=== PATIENT | female | born 1955 | race Caucasian/White ===

== ENCOUNTER → 2019-05-30 15:58 | Outpatient (CLI) | payer OTHER, SELFPAY ==
--- NOTE | 2019-05-30 16:00 | MM_ITS ---
PROCEDURE: MM DIG SCREENING MAMM BI W/CAD CLINICAL INDICATION: Routine Screening Mammogram There is a history of breast cancer patient's mother diagnosed after menopause. There has been a previous biopsy left breast for benign disease. COMPARISON: DMDXUL DIG MAMM-DX UNI-LT from 04/18/2015 DMSB DIG MAMM-SCREEN VERO from 01/09/2016 DMDXUL DIG MAMM-DX UNI-LT W/CAD from 08/04/2016 TECHNIQUE: Standard CC and MLO images were obtained. R2 CAD reviewed. FINDINGS: There is a diffusely dense and heterogenic parenchymal pattern bilaterally similar to the previous studies. There is stable nodularity in the left breast and the subareolar region. There are few benign-appearing microcalcifications in the central portions of each breast. There is no new or suspicious lesion in either breast and no suspicious microcalcifications. IMPRESSION: Stable dense and heterogenic parenchymal pattern BI-RAD Category: 2 Benign Finding(s) FOLLOW-UP: 1YR 1 Year Follow-up (A letter has been sent to the patient regarding results of the study.) Dictated by: Dr. Sohail Hoffman MD 06/01/2019 08:[address] Sohail Hoffman MD in [place] 06/01/2019 08:18
== END ==
PROVIDERS: PCP Internal Medicine; Visit Provider Nurse Practitioner Obstetrics & Gynecology
DX: Z12.31 Encounter for screening mammogram for malignant neoplasm of breast (principal)
CPT/HCPCS: 77067

== ENCOUNTER → 2019-08-16 17:30 | Outpatient (CLI) | payer OTHER, SELFPAY ==
[2019-08-17 10:52] LABS: Adenovirus F 40/41, stool Not Detected (NotDetected); Astrovirus Not Detected (NotDetected); Campylobacter Not Detected (NotDetected); Clostridium Difficile A/B, PCR Not Detected (NotDetected); Cryptosporidium Not Detected (NotDetected); Cyclospora Cayetanesis Not Detected (NotDetected); Entamoeba histolytica Not Detected (NotDetected); Enteroaggregative E coli Not Detected (NotDetected); Enteropathogenic E coli Not Detected (NotDetected); Enterotoxigenic E coli Not Detected (NotDetected); Giardia lamblia Not Detected (NotDetected); Norovirus Not Detected (NotDetected); Plesimonas Shigalloides, PCR Not Detected (NotDetected); Rotavirus A Not Detected (NotDetected); Salmonella, PCR Not Detected (NotDetected); Sapovirus Not Detected (NotDetected); Shiga-like toxin E coli Not Detected (NotDetected); Shigella Enterovasive E coli Not Detected (NotDetected); Vibrio Cholerae Not Detected (NotDetected); Vibrio, PCR Not Detected (NotDetected); Yersinia Entercolitica, PCR Not Detected (NotDetected)
== END ==
LOC: LAB 08-17 10:47 → LAB.DROPOF 08-17 10:48
PROVIDERS: Visit Provider Nurse Practitioner
DX: R19.7 Diarrhea, unspecified (principal)
CPT/HCPCS: 87507

== ENCOUNTER → 2020-04-02 13:54 | Outpatient (CLI) | payer OTHER, SELFPAY | PROVIDERS: Visit Provider Internal Medicine | DX: Z01.818 Encounter for other preprocedural examination (principal) | CPT/HCPCS: U0003 ==

== ENCOUNTER → 2020-05-01 11:03 | Outpatient (POV) | payer OTHER, SELFPAY | PROVIDERS: Visit Provider Audiologist | DX: Z00.00 Encounter for general adult medical examination without abnormal findings (principal) ==

== ENCOUNTER → 2020-05-06 10:03 | Outpatient (POV) | payer OTHER, SELFPAY | PROVIDERS: Visit Provider Dermatology | DX: Z00.00 Encounter for general adult medical examination without abnormal findings (principal) ==

== ENCOUNTER → 2020-05-29 12:13 | Outpatient (CLI) | payer OTHER, SELFPAY ==
[2020-05-29 13:00] LABS: Basophils % 0.2 % (0.1-2.0); Eosinophils # 0.1 K/mm3 (0.0-0.4); Eosinophils % 1.7 % (0.1-12.0); Hematocrit 41.1 % (37.0-47.0); Hemoglobin 13.4 g/dL (12.2-16.2); Lymphocytes # 2.3 K/mm3 (0.7-4.5); Lymphocytes % 34.7 % (10-50); Mean Corpuscular HGB Conc 32.5 g/dL (31.8-35.4); Mean Corpuscular Volume 95.3 fl (81-99); Monocytes # 0.3 K/mm3 (0.1-1.0); Monocytes % 4.3 % (1.7-9.3); Neutrophils % 59.1 % (37.0-80.0); Platelet Count 286 K/mm3 (142-424); Red Blood Count 4.31 M/mm3 (4.20-5.40); Red Cell Distribution Width 12.6 % (11.5-17.5); White Blood Count 6.7 K/mm3 (4.8-10.8)
[2020-05-29 13:55] LABS: Hemoglobin A1C 6.7 % (4.0-6.0)
--- NOTE | 2020-05-29 14:30 | CT_ITS ---
PROCEDURE: CT ABDOMEN PELVIS W CON CLINICAL INDICATION: LT UPPER QUADRANT ABD PAIN COMPARISON: No exams were available for comparison TECHNIQUE: IV Contrast: 75ML OPTIRAY 350 Oral Contrast None Axial images obtained with sagittal and coronal reformats. All CT scans at the facility use one or more dose reduction, viz: automated exposure control, ma/kV adjustment per patient size (including targeted exams where dose is matched to indication, i.e. head), or iterative reconstruction technique. FINDINGS: LOWER THORAX: No acute finding ABDOMEN & PELVIS: There is slight decreased attenuation of the liver suggesting mild hepatic steatosis. No focal liver lesion is evident. Multiple gallstones are present. The spleen, adrenal glands, pancreas have an unremarkable appearance. There is and 11 mm stone in the left renal pelvis with minimal dilatation of the left renal pelvicaliceal system. No ureteral calculi are evident. Unremarkable appendix. Minimal calcification in the left aspect of the fundus of the uterus. No pelvic mass or abnormal fluid collection is evident. There is mild degenerative disc disease at L5-S1. IMPRESSION: 1. 11 mm left ureteropelvic junction stone with mild obstructive uropathy. 2. Cholelithiasis. Dictated by: Maikel Hankins MD 05/30/2020 10:00 Maikel Hankins MD in [place] 05/30/2020 10:00
[2020-05-29 14:32] LABS: Chloride 102 mmol/L (98-107)
[2020-05-29 14:33] LABS: Potassium 4.2 mmoL/L (3.5-5.1); Sodium 137 mmol/L (136-145)
[2020-05-29 14:35] LABS: Alanine Aminotransferase 14 U/L (12-78); Albumin Level 4.3 g/dl (3.5-5.0); Albumin/Globulin Ratio 1.4 (1.1-1.8); Alkaline Phosphatase 62 U/L (38-126); Anion Gap 14.2 mEq/L (5-15); Aspartate Amino Transferase 24 U/L (14-36); Bilirubin,Total 0.5 mg/dl (0.2-1.3); Blood Urea Nitrogen 16 mg/dl (7-17); Calcium 9.9 mg/dl (8.4-10.2); Carbon Dioxide 25 mmol/L (22.0-30.0); Estimated Glomerular Filt Rate 100 ml/min (>60); GFR (African American) 121 ML/MIN (>60); Globulin 3.1 g/dL (1.3-3.2); Glucose 116 mg/dl (74-100); Lipase 68 U/L (23-300); Total Protein,Serum 7.4 g/dl (6.3-8.2)
== END ==
PROVIDERS: Visit Provider Internal Medicine Adolescent Medicine
DX: R10.12 Left upper quadrant pain (principal)
CPT/HCPCS: 36415; 74177; 80053; 83036; 83690; 85025; Q9967

== ENCOUNTER → 2020-05-30 09:36 | Day surgery (SDC) | payer OTHER, MEDICAID, SELFPAY ==
[2020-05-30] VITALS (11 sets, daily range): BP systolic 126–154; BP diastolic 70–85; PULSE 79–95; RESP 16–18; TEMP 36.4–36.9; O2SAT 94–100; BMI 21.2
--- NOTE | 2020-05-30 11:01 | P.PN_ITS ---
[facility] Anesthesia Checklist - Patient Identification Patient Identification: Arm Band, Verbal (Name & ) - Structural Data Admitted From: Home Planned Operative Procedure/s: cysto Consent for Planned Operative Procedure(s) Verified: Yes Verified Documents: History and Physical - NPO Status Verified Time NPO: 00:00 - Chart Verification Results Verified: CBC, BMP - Additional verifications Patient : No Anesthesia Reactions: No Hx Blood Transfusions: No Blood Transfusion Reaction: No Cephalosporin Allergy: No Previous Colonoscopy: Yes - Cardiovascular Assessment Heart Sounds: S1 & S2 Pulse Strength: Baseline Pulse Rhythm: Regular Peripheral Edema: No - Airway Assessment C-Spine Mobility Assessed: Yes TMJ Mobility Assessed: Yes Dentition: Good Dentition - Neurological Assessment Level of Consciousness: Awake, Alert, Appropriate Hx Seizures: No Numbness or tingling in extremities: No - Anesthesia Plan Anesthesia Risk discussed: Yes Anesthesia Plan: Verified ASA Class: III Anesthesia Type: General [facility] History I have reviewed the patient's past medical history: Yes Medical History: Reports:: Hypertension *Have you ever received a pneumonia vaccine?: No *Have you received a flu vaccine this season?: No Other Medical History: Reports: Other Anesthesia experience/problems:: none Laterality Cases: Bilateral: Tonsillectomy Other Surgeries: Yes: - *Social History Smoking Status: Never smoker Alcohol Intake: never Alcohol Intake Frequency:: other Substance Use Type: denies use *Occupational Status:: employed Housing: house *Travel in the last 8 weeks: None Family Hx:: Hypertension, Diabetes
[2020-05-30 11:09] LABS: Coronavirus 19 IgG Antibody Negative (Negative); Coronavirus 19 IgM Antibody Negative (Negative)
--- NOTE | 2020-05-30 11:52 | FL_ITS ---
PROCEDURE: FL CYSTOGRAM NON-VOIDING CLINICAL INDICATION: STENT PLACEMENT IN OR LEFT COMPARISON: No exams were available for comparison FINDINGS: Fluoroscopy time: 37 seconds Two images submitted shows a left ureteral stent in place with the proximal aspect overlying the left upper quadrant and distal aspect overlying the region of the urinary bladder. IMPRESSION: Status post left-sided stent placement with C-arm guidance Dictated by: Maikel Hankins MD 05/30/2020 17:35 Maikel Hankins MD in [place] 05/30/2020 17:35
--- NOTE | 2020-05-30 11:58 | HMH.ANESI ---
[facility] Anesthesia Record Part I Intake, IV Amount: 250 Estimated blood loss (mL): 0 Urine output (mL): 0 Blood Products used (#): none Blood Pressure: 126/70 SaO2: 95 Pulse Rate: 81 Respiratory Rate: 18 Temperature: 98.0 F Patient is:: Drowsy, Nasal O2, Stable Stable to PACU at:: 11:57
--- NOTE | 2020-05-30 13:39 | HMH.OPNOTE ---
Date of procedure: 05/30/20 Pre-op Diagnosis:: 1.1 cm left UPJ stone Post-op Diagnosis:: Same Procedure performed:: Cystoscopy with left ureteral stent insertion Surgeon:: Jose West MD FIRE EXTINGUISHER REPAIRER INSPECTOR:: Blayne Maynard Anesthesia: GETNewton Estimated blood loss (mL): 0 Clinical Note:: 64-year-old white female with a 10-day history of some left upper quadrant left flank pain noted to have a 1.1 cm left UPJ stone on CT scan performed yesterday. She denies any fevers or chills at home. She has had a 10 pound weight loss. Her white count was normal. Operative findings:: Well calcified stone at the left UPJ. Left stent was placed without difficulty. Operative note:: Patient taken to the operating room after informed consent was obtained. She was placed on the operating table in the supine position and general anesthesia administered. Preoperative antibiotics were administered. She was then placed into the dorsal lithotomy position and prepped and draped in the standard surgical fashion. The 22 Bulgarian cystoscope passed into the urethra and into the bladder. Bladder showed no evidence of abnormalities. The ureteral orifices in their normal anatomic position. No urine was noted from the left ureteral orifice. A 5 Bulgarian ureteral catheter was passed up the left ureter into the level of the stone. The stone was well calcified on fluoroscopy. The ureteral catheter passed by the stone without difficulty and a guidewire passed through the ureteral catheter and ureteral cath removed. A 4.8 x 24 Bulgarian stent was then passed over the guidewire and the guidewire removed. A good curl was noted proximally and distally. String was left on for later removal. Patient tolerated the procedure well there are no complications. Condition: stable Disposition: PACU Specimens:: None Complications:: None
--- NOTE | 2020-05-30 14:08 | P.PN_ITS ---
[facility] Anesthesia Record Part II Discharge Time: 12:27 Destination: [facility] Day [facility] (OP Surgery) PACU nurse assessment reviewed?: Yes Patient Condition:: Good Anesthesia Complications:: None Swallowing reflex intact?: Yes Cyanosis?: No Blood Pressure: 154/79 Pulse Rate: 90 Temperature: 98.0 F Mental Status: Alert & Oriented Pain level:: 0 Nausea and/or vomitting:: None Intake, IV Amount: 25
[2020-05-30 18:00] LABS: Microscopic, Urine URINE MICROSCOPIC (MICROSCOPIC)
[2020-05-30 20:23] LABS: Appearance,Urine CLEAR (Clear); Bilirubin,Urine Negative (Negative); Blood, Urine 3+ (Negative); Color,Urine YELLOW (Yellow); Glucose,Urine (UA) Negative (Negative); Ketones,Urine TRACE (Negative); Leukocyte Esterase,Urine Negative (Negative); Nitrate,Urine Negative (Negative); Protein,Urine Negative (Negative); Urobilinogen,Urine 0.2 EU/dl (0.2)
[2020-05-30 20:26] LABS: Amorphous Sediment,Urine Trace /lpf; Mucus,Urine Trace /lpf; RBC,Urine 20-50 #/hpf (0-3)
== END ==
PROVIDERS: PCP Internal Medicine Adolescent Medicine; Visit Provider Urology
PROC: (CPT 52332; principal; 2020-05-30 11:00)
DX: N20.1 Calculus of ureter (principal); Z87.442 Personal history of urinary calculi; I10 Essential (primary) hypertension; F41.9 Anxiety disorder, unspecified; Z83.3 Family history of diabetes mellitus; Z82.49 Family history of ischemic heart disease and other diseases of the circulatory system; Z79.899 Other long term (current) drug therapy; Z88.1 Allergy status to other antibiotic agents; Z88.8 Allergy status to other drugs, medicaments and biological substances; Z88.6 Allergy status to analgesic agent; Z79.890 Hormone replacement therapy
CPT/HCPCS: 52332; 74430; 76000; 81001; 86328; 96374; C2617; J1956; J2405

== ENCOUNTER 2020-06-06 06:06 | Day surgery (SDC) | payer OTHER, MEDICAID, SELFPAY ==
[2020-06-04 11:20] VITALS: BMI 31.1
[2020-06-06] VITALS (12 sets, daily range): BP systolic 130–154; BP diastolic 62–73; PULSE 80–95; RESP 12–20; TEMP 36.2–36.4; O2SAT 92–100
[2020-06-06 07:19] LABS: Coronavirus 19 IgG Antibody Negative (Negative); Coronavirus 19 IgM Antibody Negative (Negative)
--- NOTE | 2020-06-06 08:54 | HMH.ANESCL ---
[facility] Anesthesia Checklist - Structural Data Admitted From: Home Planned Operative Procedure/s: eswl Consent for Planned Operative Procedure(s) Verified: Yes - Additional verifications Anesthesia Reactions: No Hx Blood Transfusions: No Blood Transfusion Reaction: No - Airway Assessment C-Spine Mobility Assessed: Yes TMJ Mobility Assessed: Yes Dentition: Good Dentition - Neurological Assessment Level of Consciousness: Awake, Alert, Appropriate - Anesthesia Plan Anesthesia Risk discussed: Yes Anesthesia Plan: Verified ASA Class: II Anesthesia Type: General [facility] History I have reviewed the patient's past medical history: Yes Medical History: Reports:: Diabetes Mellitus Type 2, Hypertension Denies:: Cancer, Diabetes Mellitus Type 1, Internal Pacemaker, MRSA, Seizures *Have you ever received a pneumonia vaccine?: Yes *Have you received a flu vaccine this season?: Yes Other Medical History: Reports: Other. Denies: Blood Transfusion Reaction Anesthesia experience/problems:: none Laterality Cases: Bilateral: Tonsillectomy Other Surgeries: Yes: . No: Pacemaker Amputation: No Fractures: No - *Social History Last grade of school completed: Some college Smoking Status: Never smoker Alcohol Intake: never Alcohol Intake Frequency:: other Substance Use Type: denies use *Occupational Status:: employed Housing: house Household Members: spouse *Travel in the last 8 weeks: None Family Hx:: Hypertension, Diabetes
--- NOTE | 2020-06-06 08:55 | P.PN_ITS ---
[facility] Anesthesia Record Part I Intake, IV Amount: 700 Estimated blood loss (mL): 0 Urine output (mL): 0 Blood Pressure: 154/70 SaO2: 95 Pulse Rate: 80 Respiratory Rate: 12 Temperature: 97.6 F Patient is:: Awake, Stable Stable to PACU at:: 08:50
--- NOTE | 2020-06-06 12:05 | HMH.OPNOTE ---
Date of procedure: 06/06/20 Pre-op Diagnosis:: 1.1 cm left UPJ stone Post-op Diagnosis:: Same Procedure performed:: Left ESWL Surgeon:: Jose West MD INDUSTRIAL ILLUMINATING ENGINEER:: Dante Ro Anesthesia: GETA Estimated blood loss (mL): 0 Clinical Note:: 64-year-old white female with recent left renal colic noted to have a 1.1 cm stone at the left UPJ 1 week ago. Left ureteral stent was placed and she has been on antibiotics. She returns today for ESWL of the offending stone. Operative findings:: The stone is well calcified noted to be at the left UPJ. The left ureteral stent is in good position. Operative note:: Patient taken to the operating room after informed consent was obtained. She was placed on the operating table in the supine position and general anesthesia administered. Sequential compression devices placed and preoperative antibiotics administered. In the supine position she was then positioned so that F2 of the lithotripter was focused onto the left UPJ stone. Under fluoroscopic imaging 3000 shockwaves were then delivered to the stone with very good fragmentation noted on fluoroscopy. Patient tolerated the procedure well and there are no complications. After the case she was transported to the recovery in stable condition. Condition: stable Disposition: PACU Specimens:: None Complications:: None
[2020-06-06 12:29] LABS: POC Glucose,Bedside 132 (70-110)
--- NOTE | 2020-06-06 14:08 | HMH.ANESII ---
[facility] Anesthesia Record Part II Discharge Time: 09:20 Destination: [facility] PACU nurse assessment reviewed?: Yes Patient Condition:: Good Anesthesia Complications:: None Swallowing reflex intact?: Yes Cyanosis?: No Blood Pressure: 141/70 Pulse Rate: 82 Temperature: 97.2 F Mental Status: Alert & Oriented Pain level:: 0 Nausea and/or vomitting:: None Intake, IV Amount: 1,500
== END 2020-06-06 10:45 | disposition home or self-care (01) ==
LOC: OR 06:07
PROVIDERS: PCP Internal Medicine Adolescent Medicine; Visit Provider Urology
PROC: (CPT 50590; principal; 2020-06-06 07:00)
DX: N20.1 Calculus of ureter (principal); E11.9 Type 2 diabetes mellitus without complications; I10 Essential (primary) hypertension; Z82.49 Family history of ischemic heart disease and other diseases of the circulatory system; Z83.3 Family history of diabetes mellitus
CPT/HCPCS: 50590; 82962; 86328

== ENCOUNTER → 2020-06-10 14:07 | Outpatient (CLI) | payer OTHER, MEDICAID, SELFPAY ==
--- NOTE | 2020-06-10 14:09 | XR_ITS ---
PROCEDURE: XR KUB CLINICAL INDICATION: urethral stone COMPARISON: CT CT ABDOMEN PELVIS W CON from 05/29/2020 FINDINGS: There is a left ureteral stent in place in good position. Hyperdensity is noted over the lower pole of the left kidney and may be due to multiple stone fragments. Cholelithiasis is also noted. There is mild lumbar curvature convex right. IMPRESSION: 1. Left ureteral stent in good position. 2. Stone fragments along the lower pole of the left kidney. 3. Cholelithiasis Dictated by: Maikel Hankins MD 06/10/2020 16:07 Maikel Hankins MD in [place] 06/10/2020 16:07
== END ==
PROVIDERS: PCP Internal Medicine Adolescent Medicine; Visit Provider Urology
DX: N21.1 Calculus in urethra (principal)
CPT/HCPCS: 74018

== ENCOUNTER → 2020-06-10 16:32 | Outpatient (CLI) | payer OTHER, MEDICAID, SELFPAY ==
[2020-06-21 19:56] LABS: Specimen Type NOT PROVIDED
[2020-06-21 19:57] LABS: Ca oxalate dihydrate 100%; Photo TO FOLLOW; Size <1 mm
== END ==
PROVIDERS: Visit Provider Urology
DX: N20.1 Calculus of ureter (principal)
CPT/HCPCS: 82370

== ENCOUNTER → 2020-06-17 15:20 | Outpatient (CLI) | payer OTHER, MEDICAID, SELFPAY ==
--- NOTE | 2020-06-17 15:20 | MM_ITS ---
PROCEDURE: MM DIG SCREENING MAMM BI W/CAD Digital Breast Tomosynthesis Included CLINICAL INDICATION: screening xmg History of breast cancer patient's mother diagnosed after menopause. There has been a previous biopsy left breast for benign disease. COMPARISON: MG DMSB DIG MAMM-SCREEN VERO from 01/09/2016 MG DMDXUL DIG MAMM-DX UNI-LT W/CAD from 08/04/2016 MG MM DIG SCREENING MAMM BI W/CAD from 05/30/2019 TECHNIQUE: Standard CC and MLO images and 3D Tomosynthesis was obtained. R2 CAD reviewed. FINDINGS: Prominent diffuse somewhat heterogenic fibroglandular densities are seen in the central portions of both breast and the findings are bilateral and symmetrical. There are scattered microcalcifications in each breast many of which appear to be typical of sclerosing adenosis. There is a nodular lesion inner quadrant right breast best demonstrated on chiquis images. Recommend the patient return for spot compression views and ultrasound for additional evaluation. There are no suspicious microcalcifications. IMPRESSION: Dense and heterogenic parenchymal pattern with possible new asymmetric density right breast BI-RAD Category: 0 Need Additional Imaging Evaluation FOLLOW-UP: IMM Immediate Follow-up Recommended (A letter has been sent to the patient regarding results of the study.) Dictated by: Dr. Sohail Hoffman MD 06/22/2020 08:50 Dr. Sohail Hoffman MD in [place] 06/22/2020 08:50
== END ==
PROVIDERS: PCP Internal Medicine Adolescent Medicine; Visit Provider Nurse Practitioner Obstetrics & Gynecology
DX: Z12.31 Encounter for screening mammogram for malignant neoplasm of breast (principal)
CPT/HCPCS: 77063; 77067

== ENCOUNTER 2020-07-04 06:08 | Day surgery (SDC) | payer OTHER, MEDICAID, SELFPAY ==
[2020-07-01 10:39] VITALS: BMI 28.3
[2020-07-04] VITALS (22 sets, daily range): BP systolic 120–157; BP diastolic 62–87; PULSE 75–91; RESP 15–22; TEMP 36.3–43; O2SAT 93–99
[2020-07-04 06:39] LABS: POC Glucose,Bedside 132 (70-110)
[2020-07-04 07:16] LABS: Coronavirus 19 IgG Antibody Negative (Negative); Coronavirus 19 IgM Antibody Negative (Negative)
--- NOTE | 2020-07-04 08:31 | P.OP_ITS ---
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 General anesthesia was induced and the abdomen was prepped and draped in a sterile fashion. After infiltration with local anesthetic an infraumbilical incision was made. A Veress needle was placed in position. The abdomen was insufflated. A 5 mm optical trocar was placed in position. Under direct visualization, a 12 mm trocar was placed in the subxiphoid position and 2 additional 5 mm trocars were placed in the right upper quadrant. The gallbladder was elevated up and over the liver margin. The tissue around the cystic duct was carefully dissected. 3 clips were placed proximally and the duct was transected with harmonic unique. Harmonic unique were then utilized to dissect the gallbladder away from the liver margin with careful attention to the control of the cystic artery. 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 The gallbladder was placed in a retrieval bag and removed through the subxiphoid trocar site. The right upper quadrant was thoroughly irrigated. No active bleeding or bile leak was noted. Fascia at the subxiphoid trocar site was reapproximated utilizing 0 Ethibond. The remaining trocars were removed. All wounds were irrigated and skin was closed with 4-0 Monocryl in a subcuticular fashion. Steri-Strips were applied. The patient's anesthetic agents were reversed and extubation was completed prior to transfer to recovery in stable condition. Condition: stable Disposition: PACU Specimens:: Gallbladder and contents Complications:: No immediate
--- NOTE | 2020-07-04 08:44 | HMH.ANESCL ---
[facility] Anesthesia Checklist - Patient Identification Patient Identification: Arm Band, Verbal (Name & ) - Structural Data Admitted From: Home Planned Operative Procedure/s: lap choly Consent for Planned Operative Procedure(s) Verified: Yes Verified Documents: History and Physical - NPO Status Verified Time NPO: 00:00 - Chart Verification Results Verified: CBC, BMP - Additional verifications Patient : No Anesthesia Reactions: No Hx Blood Transfusions: No Blood Transfusion Reaction: No Cephalosporin Allergy: No Previous Colonoscopy: Yes - Cardiovascular Assessment Heart Sounds: S1 & S2 Pulse Strength: Baseline Pulse Rhythm: Regular Peripheral Edema: No - Airway Assessment C-Spine Mobility Assessed: Yes TMJ Mobility Assessed: Yes Dentition: Good Dentition - Neurological Assessment Level of Consciousness: Awake, Alert, Appropriate Hx Seizures: No Numbness or tingling in extremities: No - Anesthesia Plan Anesthesia Risk discussed: Yes Anesthesia Plan: Verified ASA Class: III Anesthesia Type: General [facility] History I have reviewed the patient's past medical history: Yes Medical History: Reports:: Diabetes Mellitus Type 2, Hypertension Denies:: Cancer, Diabetes Mellitus Type 1, Internal Pacemaker, MRSA, Seizures *Have you ever received a pneumonia vaccine?: No *Have you received a flu vaccine this season?: Yes Other Medical History: Reports: Other. Denies: Blood Transfusion Reaction Anesthesia experience/problems:: none Laterality Cases: Bilateral: Tonsillectomy Other Surgeries: Yes: Colonoscopy, . No: Pacemaker Amputation: No Fractures: No - *Social History Smoking Status: Never smoker Alcohol Intake: never Alcohol Intake Frequency:: other Substance Use Type: denies use *Occupational Status:: employed Housing: house Household Members: spouse *Travel in the last 8 weeks: None Family Hx:: Hypertension, Diabetes
--- NOTE | 2020-07-04 08:45 | P.PN_ITS ---
[facility] Anesthesia Record Part I Intake, IV Amount: 650 Estimated blood loss (mL): 10 Urine output (mL): 0 Blood Products used (#): none Blood Pressure: 155/87 SaO2: 98 Pulse Rate: 85 Respiratory Rate: 18 Temperature: 97.4 F Patient is:: Drowsy, Nasal O2, Stable Stable to PACU at:: 08:41
[2020-07-04 09:11] LABS: POC Glucose,Bedside 166 (70-110)
--- NOTE | 2020-07-04 11:44 | HMH.ANESII ---
[facility] Anesthesia Record Part II Discharge Time: 09:11 Destination: Surgical Day Care (OP Surgery) PACU nurse assessment reviewed?: Yes Patient Condition:: Good Anesthesia Complications:: None Swallowing reflex intact?: Yes Cyanosis?: No Blood Pressure: 146/79 Pulse Rate: 79 Temperature: 97.6 F Mental Status: Alert & Oriented Pain level:: 0 Nausea and/or vomitting:: None Intake, IV Amount: 50
== END 2020-07-04 11:30 | disposition home or self-care (01) ==
LOC: OR 06:08
PROVIDERS: PCP Internal Medicine Adolescent Medicine; Visit Provider Surgery
PROC: 0FT44ZZ Resection of Gallbladder, Percutaneous Endoscopic Approach (ICD-10-PCS; CPT 47562; principal; 2020-07-04 07:30)
DX: K80.10 Calculus of gallbladder with chronic cholecystitis without obstruction (principal); E11.9 Type 2 diabetes mellitus without complications; I10 Essential (primary) hypertension; Z83.3 Family history of diabetes mellitus; Z82.49 Family history of ischemic heart disease and other diseases of the circulatory system
CPT/HCPCS: 47562; 82962; 86328; 96374; J0131; J2405; J2710

== ENCOUNTER → 2020-07-16 14:13 | Outpatient (CLI) | payer OTHER, MEDICAID, SELFPAY ==
--- NOTE | 2020-07-16 14:14 | MM_ITS ---
PROCEDURE: MM DIG MAMM DX UNILAT RT CAD Digital Breast Tomosynthesis Included CLINICAL INDICATION: abnormal Abnormal screening exam COMPARISON: US BB US BREAST-VERO from 07/16/2014 MG DMDXUL DIG MAMM-DX UNI-LT W/CAD from 08/04/2016 MG MM DIG SCREENING MAMM BI W/CAD from 05/30/2019 MG MM DIG SCREENING MAMM BI W/CAD from 06/17/2020 US US BREAST RT COMPLETE from 07/16/2020 TECHNIQUE: Standard CC and MLO images and 3D Tomosynthesis was obtained. R2 CAD reviewed. FINDINGS: There is average to dense fibroglandular tissue. Asymmetric density is present in the inferior aspect of the right breast corresponding to the abnormality noted on the screening exam. Other smaller densities are also present. No suspicious mass is apparent. Benign-appearing calcifications are present throughout the right breast. On the spot compression view there is a benign-appearing 16 mm nodule in the medial aspect of the right breast corresponding to the abnormality seen on the screening mammogram. Right breast ultrasound: There are multiple cysts present which vary in size. At the 1-2 o'clock region there is a macro lobulated cyst which is 17 x 11 mm corresponding to the new nodule noted on the mammogram. At 4 o'clock near the nipple there are several cyst 1 of which measures 6 x 4 mm with some low level echoes possibly artifactual or due to internal debris. Previously there was a 9 x 7 mm nodule in this region at 5 o'clock. At 6 o'clock there is a area of decreased echogenicity not well-defined and may be due to some fibrocystic change the. Static image does demonstrate a small cluster of cysts at this area. IMPRESSION: New nodule in the right breast corresponds to a lobulated cyst. Ultrasound of the right breast shows multiple cysts with a complicated cyst at 6 o'clock with some heterogeneous decreased echogenicity probably due to fibrocystic change. Suggest 6 month mammographic and sonographic follow-up to confirm stability. BI-RAD Category: 3 Probably Benign Finding Short Term Follow-up FOLLOW-UP: 6M 6Month Follow-up (A letter has been sent to the patient regarding results of the study.) Dictated by: Maikel Hankins MD 07/24/2020 12:49 Maikel Hankins MD in [place] 07/24/2020 12:49
== END ==
PROVIDERS: PCP Internal Medicine Adolescent Medicine; Visit Provider Nurse Practitioner Obstetrics & Gynecology
DX: R92.8 Other abnormal and inconclusive findings on diagnostic imaging of breast (principal)
CPT/HCPCS: 76641; 77061; 77065; G0279

== ENCOUNTER → 2020-09-11 12:57 | Outpatient (CLI) | payer OTHER, MEDICAID, SELFPAY ==
--- NOTE | 2020-09-11 13:10 | XR_ITS ---
PROCEDURE: XR KUB CLINICAL INDICATION: kidney stone COMPARISON: CT CT ABDOMEN PELVIS W CON from 05/29/2020 CR XR KUB from 06/10/2020 FINDINGS: Left ureteral stent has been removed. No obvious renal or ureteral calculi. Status post cholecystectomy. Mild lumbar scoliosis convex right with mild degenerative change in the lumbar spine and hips. IMPRESSION: As above, no acute finding. No ureteral or renal calculi parent Dictated by: Maikel Hankins MD 09/11/2020 15:00 Maikel Hankins MD in [place] 09/11/2020 15:00
== END ==
PROVIDERS: PCP Internal Medicine Adolescent Medicine; Visit Provider Urology
DX: N20.0 Calculus of kidney (principal)
CPT/HCPCS: 74018

== ENCOUNTER → 2020-12-05 15:15 | Outpatient (CLI) | payer OTHER, MEDICAID, SELFPAY ==
[2020-12-05 15:52] LABS: Basophils % 0.7 % (0.1-2.0); Eosinophils # 0.1 K/mm3 (0.0-0.4); Eosinophils % 1.1 % (0.1-12.0); Hematocrit 40.4 % (37.0-47.0); Hemoglobin 13.4 g/dL (12.2-16.2); Lymphocytes # 3.2 K/mm3 (0.7-4.5); Lymphocytes % 49.9 % (10-50); Mean Corpuscular HGB Conc 33.1 g/dL (31.8-35.4); Mean Corpuscular Hemoglobin 30.1 pg (27.0-31.2); Mean Corpuscular Volume 90.8 fl (81-99); Mean Platelet Volume 8.6 fl (7.4-10.4); Monocytes # 0.3 K/mm3 (0.1-1.0); Monocytes % 4.6 % (1.7-9.3); Neutrophils # 2.8 K/mm3 (1.8-7.8); Neutrophils % 43.8 % (37.0-80.0); Platelet Count 269 K/mm3 (142-424); Red Blood Count 4.45 M/mm3 (4.20-5.40); Red Cell Distribution Width 12.9 % (11.5-17.5); White Blood Count 6.5 K/mm3 (4.8-10.8)
[2020-12-05 16:02] LABS: Hemoglobin A1C 6.5 % (4.0-6.0)
[2020-12-05 16:07] LABS: Chloride 103 mmol/L (98-107); Sodium 139 mmol/L (136-145)
[2020-12-05 16:08] LABS: Potassium 4.7 mmoL/L (3.5-5.1)
[2020-12-05 16:10] LABS: Alanine Aminotransferase 17 U/L (12-78); Albumin Level 4.7 g/dl (3.5-5.0); Albumin/Globulin Ratio 1.5 (1.1-1.8); Alkaline Phosphatase 76 U/L (38-126); Anion Gap 12.7 mEq/L (5-15); Aspartate Amino Transferase 29 U/L (14-36); Bilirubin,Total 0.4 mg/dl (0.2-1.3); Blood Urea Nitrogen 13 mg/dl (7-17); Calcium 10.2 mg/dl (8.4-10.2); Carbon Dioxide 28 mmol/L (22.0-30.0); Cholesterol 172 mg/dl (140-200); Estimated Glomerular Filt Rate 72 ml/min (>60); GFR (African American) 87 ML/MIN (>60); Globulin 3.2 g/dL (1.3-3.2); Glucose 106 mg/dl (74-100); Total Protein,Serum 7.9 g/dl (6.3-8.2); Triglycerides 127 mg/dl (30-150); VLDL Cholesterol 25 mg/dL (0-40)
[2020-12-05 16:11] LABS: Chol/HDL Ratio 3.3 (1-3.5); HDL Cholesterol 52 mg/dl (40-60)
[2020-12-05 16:22] LABS: Direct LDL Cholesterol 87.92 mg/dL (100-129)
== END ==
PROVIDERS: Visit Provider Internal Medicine Adolescent Medicine
DX: I10 Essential (primary) hypertension (principal); E11.9 Type 2 diabetes mellitus without complications; Z79.84 Long term (current) use of oral hypoglycemic drugs
CPT/HCPCS: 36415; 80053; 80061; 83036; 85025

== ENCOUNTER → 2021-01-30 14:02 | Outpatient (CLI) | payer OTHER, SELFPAY ==
--- NOTE | 2021-01-30 14:03 | MM_ITS ---
PROCEDURE: MM DIG MAMM DX UNILAT RT CAD Digital Breast Tomosynthesis Included Complete right breast ultrasound CLINICAL INDICATION: 6 month f/u RT Breast density COMPARISON: MG MM DIG SCREENING MAMM BI W/CAD from 05/30/2019 MG MM DIG SCREENING MAMM BI W/CAD from 06/17/2020 MG MM DIG MAMM DX UNILAT RT CAD from 07/16/2020 US US BREAST RT COMPLETE from 07/16/2020 US US BREAST RT COMPLETE from 01/30/2021 TECHNIQUE: Standard CC and MLO images and 3D Tomosynthesis was obtained. Spot compression CC and MLO views of the right breast also obtained. R2 CAD reviewed. FINDINGS: Breast parenchyma is heterogeneously dense which may lower the sensitivity of mammography. Previously noted 16 millimeter nodule in the medial right breast is again noted and is unchanged. No new dominant mass or indirect evidence of malignancy. No suspicious type microcalcifications. Scattered benign-appearing calcifications in the right breast again noted. Several scattered small cysts noted similar to prior exam. Mildly lobulated minimally complicated cyst at 1 o'clock again noted, measuring about 17 mm in greatest dimension. There is a separate additional small cyst adjacent measuring about 6 millimeters. Mild fibrous change at 6 o'clock in the right breast is again noted also similar to prior exam. These findings are considered probably benign and repeat bilateral digital diagnostic mammograms and right breast ultrasound in 6 months are recommended. IMPRESSION: Unchanged small 16 mm nodule medial right breast showing as a 17 mm minimally complicated cyst at 1 o'clock by ultrasound, similar to prior exam. Several additional scattered small cysts noted similar to prior exam. Mild fibrous change at 6 o'clock in the right breast is unchanged. Findings are considered probably benign and bilateral digital diagnostic mammograms and right breast ultrasound in 6 months are recommended for continued close follow-up. BI-RAD Category: 3 Probably Benign Finding Short Term Follow-Up FOLLOW-UP: 6M 6 Month Follow-up (A letter has been sent to the patient regarding results of the study.) Dictated by: Jermaine Chung MD 01/30/2021 17:04 Jermaine Chung MD in [place] 01/30/2021 17:04
== END ==
PROVIDERS: PCP Internal Medicine Adolescent Medicine; Visit Provider Nurse Practitioner Obstetrics & Gynecology
DX: R92.8 Other abnormal and inconclusive findings on diagnostic imaging of breast (principal)
CPT/HCPCS: 76641; 77061; 77065; G0279

== ENCOUNTER → 2021-03-23 14:08 | Outpatient (CLI) | payer OTHER, SELFPAY | PROVIDERS: PCP Internal Medicine Adolescent Medicine; Visit Provider Nurse Practitioner Family | DX: Z20.822 Contact with and (suspected) exposure to COVID-19 (principal) | CPT/HCPCS: U0003 ==

== ENCOUNTER → 2021-04-01 12:27 | Outpatient (CLI) | payer OTHER, SELFPAY ==
--- NOTE | 2021-04-01 12:52 | XR_ITS ---
PROCEDURE: XR CHEST PORTABLE CLINICAL HISTORY: shortness of breath COMPARISON: No exams were available for comparison FINDINGS: The cardiomediastinal silhouette and pulmonary vascularity are within normal limits. The lungs are clear without infiltrates, suspicious nodules, or pleural effusions. Mild thoracolumbar curvature convex right IMPRESSION: No acute findings. Dictated by: Maikel Hankins MD 04/01/2021 15:44 Maikel Hankins MD in [place] 04/01/2021 15:44
[2021-04-01 13:59] LABS: Adenovirus,PCR Not Detected (NotDetected); Bordetella Pertussis Not Detected (NotDetected); Chlamydophila Pneumoniae, PCR Not Detected (NotDetected); Coronavirus 19, PCR Not Detected (NotDetected); Coronavirus 229E Not Detected (NotDetected); Coronavirus NL63 Not Detected (NotDetected); Coronavirus OC43 Not Detected (NotDetected); Coronovirus HKU1,PCR Not Detected (NotDetected); Human Metapneumovirus Not Detected (NotDetected); Influenza A, PCR Not Detected (NotDetected); Influenza AH1, 2009 Not Detected (NotDetected); Influenza AH1, PCR Not Detected (NotDetected); Influenza AH3,PCR Not Detected (NotDetected); Influenza B, PCR Not Detected (NotDetected); Mycoplasma Pneumoniae, PCR Not Detected (NotDetected); Parainfluenza 1, PCR Not Detected (NotDetected); Parainfluenza 2, PCR Not Detected (NotDetected); Parainfluenza 3, PCR Not Detected (NotDetected); Parainfluenza 4, PCR Not Detected (NotDetected); Respiratory Syncytial Virus Not Detected (NotDetected)
[2021-04-01 18:09] LABS: Rhinovirus/Enterovirus Detected (NotDetected)
== END ==
PROVIDERS: PCP Internal Medicine Adolescent Medicine; Visit Provider Internal Medicine Pulmonary Disease
DX: Z20.822 Contact with and (suspected) exposure to COVID-19 (principal); R05 Cough; B34.1 Enterovirus infection, unspecified
CPT/HCPCS: 71045; 87581; 87633; 87798

== ENCOUNTER → 2021-07-16 10:30 | Outpatient (POV) | payer OTHER, SELFPAY | PROVIDERS: Visit Provider Audiologist | DX: Z00.00 Encounter for general adult medical examination without abnormal findings (principal) ==

== ENCOUNTER → 2021-08-03 14:42 | Outpatient (CLI) | payer OTHER, SELFPAY ==
--- NOTE | 2021-08-03 14:42 | US_ITS ---
PROCEDURE INFORMATION: Exam: US Right Breast, Complete US Left Breast, Complete MG Bilateral Diagnostic Breast Tomosynthesis Exam date and time: 08/03/2021 2:42 PM Age: 66 years old Clinical indication: Follow-up for probable cystic change TECHNIQUE: Imaging protocol: Complete ultrasound of all four quadrants of the Right breast and the retroareolar regions, including ultrasound of the axilla when performed. Complete ultrasound of all four quadrants of the Left breast and the retroareolar regions, including ultrasound of the axilla when performed. Bilateral Diagnostic tomosynthesis and 2D mammography including computer-aided detection (CAD) when performed. Unilateral or bilateral exam. COMPARISON: 1. MG MM DIG MAMM DX UNILAT RT CAD 01/30/2021 2:01 PM 2. MG MM DIG MAMM DX UNILAT RT CAD 07/16/2020 2:16 PM FINDINGS: MAMMOGRAPHY: The breast tissue is extremely dense, which lowers the sensitivity of mammography. There are no suspicious microcalcifications in either breast to suggest malignancy. In the left lateral periareolar region is the suggestion of subtle architectural distortion and underlying ovoid mass measuring approximately 1.1 cm in greatest dimension. It appears to be located in the left approximate 3 o'clock axis. No suspicious findings in the right breast. No skin thickening or axillary adenopathy. ULTRASOUND: Sonographic images of both breasts including the retroareolar regions, all 4 quadrants and the axilla were obtained. Scattered subcentimeter cystic change is present bilaterally. In the left supra-areolar region only well seen on sonography is a questionable 0.7 x 0.5 x 0.5 cm solid mass. The finding is not seen on mammography and likely reflects an island of dense normal fibroglandular structures. Furthermore, the area of interest is less pronounced compared to prior ultrasound dated 07/02/2016. In the left 4 o'clock axis near the nipple is an ovoid fairly superficial hypoechoic solid mass measuring 0.6 x 0.4 x 0.6 cm in dimension. The finding is new compared to prior ultrasound dated 2015. It is possible this corresponds to the mass with subtle associated distortion seen on mammography. The finding is radiographically indeterminate. No architectural distortion or acoustical shadowing. No skin thickening or axillary adenopathy. IMPRESSION: Interval development of a solid mass in the left 4 o'clock periareolar region possibly correlating with the focal area of masslike density and subtle associated distortion on mammography. Ultrasound-guided core biopsy, clip placement and post biopsy correlative left mammogram are recommended for further evaluation of the mass and to ensure accurate correlation between the mammographic and sonographic findings. ASSESSMENT: BI-RADS Category 4: Suspicious
== END ==
PROVIDERS: PCP Internal Medicine Adolescent Medicine; Visit Provider Nurse Practitioner Obstetrics & Gynecology
DX: R92.8 Other abnormal and inconclusive findings on diagnostic imaging of breast (principal)
CPT/HCPCS: 76641; 77062; 77066; G0279

== ENCOUNTER → 2021-09-01 07:33 | Outpatient (CLI) | payer OTHER, SELFPAY ==
--- NOTE | 2021-09-01 07:34 | US_ITS ---
FINAL REPORT CLINICAL HISTORY: LT BREAST NODULE 400, planned biopsy of suspicious nodule COMPARISON: 08-03-21 FINDINGS: Repeat sonographic assessment of the left breast directed toward the abnormality identified at 4:00 shows no suspicious nodule. The nodule in retrospect is considered artifact associated with volume averaging from adjacent glandular tissue. A few small cysts were again noted at 4:00. There was a mildly heterogeneous hypoechoic shadowing focus at 5:00 measuring 10 x 7 mm. However this occurred at the site of excisional biopsy with obvious scar of the skin overlying the abnormality. This may have accounted for architectural distortion seen on recent mammography on cc view. IMPRESSION: 1. No reproducible lesion to warrant ultrasound-guided biopsy at this time 2. Somewhat ill-defined heterogeneous shadowing focus at 5:00 presumably representing scarring from previous excisional biopsy 3. Short-term sonographic and mammographic follow-up of left breast is recommended in 6 months. Please refer to previous recent mammogram and ultrasound of the right breast for recommendations regarding right breast management. Findings and recommendation were discussed with patient at time of examination who expressed understanding. Authenticated by Skyler Suresh MD on 09/03/2021 02:15:22 PM [facility]
== END ==
PROVIDERS: PCP Internal Medicine Adolescent Medicine; Visit Provider Nurse Practitioner Obstetrics & Gynecology
DX: N63.20 Unspecified lump in the left breast, unspecified quadrant (principal)
CPT/HCPCS: 76642

== ENCOUNTER → 2021-12-16 09:43 | Outpatient (CLI) | payer OTHER, SELFPAY ==
[2021-12-16 11:21] LABS: Hemoglobin A1C 6.1 % (4.0-6.0)
== END ==
PROVIDERS: Visit Provider Internal Medicine Adolescent Medicine
DX: E11.9 Type 2 diabetes mellitus without complications (principal); Z79.84 Long term (current) use of oral hypoglycemic drugs
CPT/HCPCS: 36415; 83036

== ENCOUNTER → 2022-02-18 12:44 | Outpatient (CLI) | payer OTHER, SELFPAY ==
[2022-02-18 14:26] LABS: Chloride 103 mmol/L (98-107); Potassium 4.7 mmoL/L (3.5-5.1); Sodium 137 mmol/L (136-145)
[2022-02-18 14:29] LABS: Alanine Aminotransferase 26 U/L (12-78); Albumin Level 4.2 g/dl (3.5-5.0); Albumin/Globulin Ratio 1.4 (1.1-1.8); Alkaline Phosphatase 87 U/L (38-126); Anion Gap 9.7 mEq/L (5-15); Aspartate Amino Transferase 37 U/L (14-36); Bilirubin,Total 0.2 mg/dl (0.2-1.3); Blood Urea Nitrogen 16 mg/dl (7-17); Carbon Dioxide 29 mmol/L (22.0-30.0); Cholesterol 191 mg/dl (140-200); Estimated Glomerular Filt Rate 100 ml/min (>60); GFR (African American) 121 ML/MIN (>60); Globulin 3.1 g/dL (1.3-3.2); Glucose 151 mg/dl (74-100); Total Protein,Serum 7.3 g/dl (6.3-8.2); Triglycerides 210 mg/dl (30-150); VLDL Cholesterol 42 mg/dL (0-40)
[2022-02-18 14:30] LABS: Calcium 9.4 mg/dl (8.4-10.2); Chol/HDL Ratio 3.2 (1-3.5); HDL Cholesterol 60 mg/dl (40-60)
[2022-02-18 14:41] LABS: Direct LDL Cholesterol 102.95 mg/dL (100-129)
== END ==
PROVIDERS: PCP Internal Medicine Adolescent Medicine; Visit Provider Internal Medicine Adolescent Medicine
DX: E11.9 Type 2 diabetes mellitus without complications (principal); Z79.84 Long term (current) use of oral hypoglycemic drugs
CPT/HCPCS: 36415; 80053; 80061; 83036

== ENCOUNTER → 2022-05-11 08:07 | Outpatient (CLI) | payer OTHER, SELFPAY ==
[2022-05-11 09:04] LABS: Chol/HDL Ratio 3.5 (1-3.5); Cholesterol 226 mg/dl (140-200); HDL Cholesterol 64 mg/dl (40-60); Triglycerides 192 mg/dl (30-150); VLDL Cholesterol 38 mg/dL (0-40)
[2022-05-11 09:15] LABS: Direct LDL Cholesterol 118.46 mg/dL (100-129)
== END ==
PROVIDERS: PCP Internal Medicine Adolescent Medicine; Visit Provider Internal Medicine Adolescent Medicine
DX: E11.9 Type 2 diabetes mellitus without complications (principal); Z79.84 Long term (current) use of oral hypoglycemic drugs
CPT/HCPCS: 36415; 80061

== ENCOUNTER → 2022-07-23 14:34 | Outpatient (CLI) | payer OTHER, SELFPAY ==
--- NOTE | 2022-07-23 14:35 | US_ITS ---
PROCEDURE INFORMATION: Exam: US Left Breast, Complete MG Left Diagnostic Breast Tomosynthesis Exam date and time: 07/23/2022 3:08 PM Age: 67 years old Clinical indication: Short-term radiographic followup; questionable left breast mass TECHNIQUE: Imaging protocol: Complete ultrasound of all four quadrants of the Left breast and the retroareolar regions, including ultrasound of the axilla when performed. Left Diagnostic tomosynthesis and 2D mammography including computer-aided detection (CAD) when performed. Unilateral or bilateral exam. COMPARISON: US BREAST LT LIMITED 09/01/2021 7:53 AM Mammogram and ultrasound dated 08/03/2021 FINDINGS: MAMMOGRAPHY: .The breasts are heterogeneously dense, which may obscure small masses. There is no stellate mass, architectural distortion or suspicious microcalcifications in either breast to suggest malignancy. No skin thickening or axillary adenopathy. ULTRASOUND: Sonographic images of the left breast including the retroareolar region, all 4 quadrants and the axilla do not demonstrate any solid masses. Previously noted left 4 o'clock periareolar mass is not reproducible on the current examination. Scattered cysts are present with a cluster of cysts measuring up to 1.6 cm in combined dimension in the upper inner quadrant 3 cm from the nipple. No architectural distortion or acoustical shadowing. No skin thickening or axillary adenopathy IMPRESSION: No mammographic or sonographic evidence of malignancy. Annual bilateral mammographic screening is recommended unless otherwise clinically indicated. ASSESSMENT: Assessment: BI-RADS Category 2: Benign
== END ==
PROVIDERS: PCP Internal Medicine Adolescent Medicine; Visit Provider Nurse Practitioner Obstetrics & Gynecology
DX: R92.8 Other abnormal and inconclusive findings on diagnostic imaging of breast (principal)
CPT/HCPCS: 76641; 77062; 77066; G0279

== ENCOUNTER → 2022-12-20 12:43 | Outpatient (CLI) | payer OTHER, SELFPAY ==
[2022-12-20 13:41] LABS: Basophils % 0.4 % (0.1-2.0); Eosinophils # 0.1 K/mm3 (0.0-0.4); Eosinophils % 1.3 % (0.1-12.0); Hematocrit 41.7 % (37.0-47.0); Hemoglobin 13.5 g/dL (12.2-16.2); Lymphocytes # 2.6 K/mm3 (0.7-4.5); Lymphocytes % 43.1 % (10-50); Mean Corpuscular HGB Conc 32.3 g/dL (31.8-35.4); Mean Corpuscular Hemoglobin 30.7 pg (27.0-31.2); Mean Corpuscular Volume 94.9 fl (81-99); Mean Platelet Volume 8.4 fl (7.4-10.4); Monocytes # 0.3 K/mm3 (0.1-1.0); Monocytes % 4.8 % (1.7-9.3); Neutrophils % 50.3 % (37.0-80.0); Platelet Count 286 K/mm3 (142-424); Red Blood Count 4.39 M/mm3 (4.20-5.40)
[2022-12-20 13:58] LABS: Alanine Aminotransferase 34 U/L (12-78); Albumin Level 4.1 g/dl (3.5-5.0); Albumin/Globulin Ratio 1.4 (1.1-1.8); Alkaline Phosphatase 73 U/L (38-126); Anion Gap 14.3 mEq/L (5-15); Aspartate Amino Transferase 46 U/L (14-36); Bilirubin,Total 0.5 mg/dl (0.2-1.3); Blood Urea Nitrogen 11 mg/dl (7-17); Calcium 8.9 mg/dl (8.4-10.2); Carbon Dioxide 28 mmol/L (22.0-30.0); Chloride 98 mmol/L (98-107); Chol/HDL Ratio 3.5 (1-3.5); Cholesterol 226 mg/dl (140-200); Estimated Glomerular Filt Rate 99 ml/min (>60); GFR (African American) 120 ML/MIN (>60); Globulin 2.9 g/dL (1.3-3.2); Glucose 157 mg/dl (74-100); HDL Cholesterol 64 mg/dl (40-60); Potassium 4.3 mmoL/L (3.5-5.1); Sodium 136 mmol/L (136-145); Triglycerides 207 mg/dl (30-150); VLDL Cholesterol 41 mg/dL (0-40)
[2022-12-20 14:08] LABS: Direct LDL Cholesterol 133.49 mg/dL (100-129)
[2022-12-20 15:03] LABS: Hemoglobin A1C 6.6 % (4.0-6.0)
== END ==
PROVIDERS: PCP Internal Medicine Adolescent Medicine; Visit Provider Internal Medicine Adolescent Medicine
DX: E11.9 Type 2 diabetes mellitus without complications (principal); I10 Essential (primary) hypertension; Z79.84 Long term (current) use of oral hypoglycemic drugs
CPT/HCPCS: 36415; 80053; 80061; 83036; 85025

== ENCOUNTER 2023-05-31 07:47 | Day surgery (SDC) | payer OTHER, SELFPAY ==
[2023-05-31] VITALS (7 sets, daily range): BP systolic 88–169; BP diastolic 50–73; PULSE 79–100; RESP 16–18; TEMP 36.1–36.4; O2SAT 93–97; BMI 29.2
--- NOTE | 2023-05-31 08:02 | P.PNANES_ITS ---
[facility] Disclaimer: The information contained in this section may have been updated after the patient was seen, as this information can be updated by other users. Social History Smoking Status: Never smoker alcohol intake: current substance use type: denies use current occupational status: employed Travel in the last 8 weeks: None household members: spouse housing: house current occupation: [employer] current occupational exposures/hazards: No caffeine: No [facility] Anesthesia Checklist Patient Identification Patient Identification: Arm Band and Verbal (Name & ) Structural Data Admitted From: Home Planned Operative Procedure/s: Colonoscopy Consent for Planned Operative Procedure(s) Verified: Yes NPO Status Verified Time NPO: 00:00 Additional verifications Anesthesia Reactions: No Hx Blood Transfusions: No Blood Transfusion Reaction: No Airway Assessment Mallampati Score:: Class II C-Spine Mobility Assessed: Yes TMJ Mobility Assessed: Yes Dentition: Good Dentition Neurological Assessment Level of Consciousness: Awake Hx Seizures: No Numbness or tingling in extremities: No Anesthesia Plan Anesthesia Risk discussed: Yes Anesthesia Plan: Verified ASA Class: III Anesthesia Type: MAC
[2023-05-31 08:20] LABS: POC Glucose,Bedside 128 (70-110)
--- NOTE | 2023-05-31 08:52 | P.PCN_ITS ---
Procedure: Date: 05/31/23 Patient Date of :: 1955 Procedure Performed:: Colonoscopy with polypectomy Indications:: History of colon polyps Performing Provider:: Tung Partida MD Referring Provider:: . Sedation:: Monitored anesthesia care Procedure:: After informed consent was obtained the patient was taken to the endoscopy suite. Sedation ensued after the patient was transferred to the left lateral d ecubitus position. Pulse, blood pressure, and oxygen saturation were monitored throughout the procedure. Digital rectal exam revealed no significant abnormality. The colonoscope was placed in position. The entire colon was evaluated. The colonoscope was carefully removed and the patient was transferred to recovery in stable condition. Please see findings and specimens below for detail. Findings:: Bowel preparation moderate to poor Fairly significant tortuosity/spasticity 9 mm lobulated sessile periappendiceal polyp Specimens:: 9 mm lobulated sessile periappendiceal polyp (cold snare) Recommendations:: Timing of repeat colonoscopy is pending pathology but will likely be between 1-2 years with extended bowel preparation secondary to size/nature of polyp, history of polyps, tortuosity/spasticity, and moderate to poor bowel preparation. Complications:: No immediate Estimated blood obtained (mL): 1 Colonoscopy Component Colonoscopy Component Was a colonoscopy performed during today's procedure?: Yes Recommended follow up colonoscopy of at least 10 years?: No If no, follow up colonoscopy recommended in ___ years?: (See above) Reason for not recommending >/= 10 yr follow-up interval?: (See above)
== END 2023-05-31 09:44 | disposition home or self-care (01) ==
PROVIDERS: PCP Internal Medicine Adolescent Medicine; Visit Provider Surgery
PROC: 0DJD8ZZ Inspection of Lower Intestinal Tract, Via Natural or Artificial Opening Endoscopic (ICD-10-PCS; CPT 45385; principal; 2023-05-31 08:30)
DX: Z12.11 Encounter for screening for malignant neoplasm of colon (principal); Z86.010 Personal history of colon polyps; K56.2 Volvulus; D12.0 Benign neoplasm of cecum; E11.9 Type 2 diabetes mellitus without complications
CPT/HCPCS: 45385; 82962; J2704

== ENCOUNTER 2024-03-30 15:25 | Outpatient (CLI) | payer MEDICARE, SELFPAY ==
--- NOTE | 2024-03-30 15:50 | MM_ITS ---
PROCEDURE INFORMATION: Exam: MG Bilateral Screening 3D Mammography Exam date and time: 03/30/2024 3:39 PM Age: 68 years old Clinical indication: Screening exam. TECHNIQUE: Imaging protocol: Bilateral Screening tomosynthesis and 2D mammography including computer-aided detection (CAD) when performed. COMPARISON: 1. MG MM DIG MAMM BI DX W/CAD 07/23/2022 2:36 PM 2. MG MM DIG MAMM BI DX W/CAD 08/03/2021 2:40 PM FINDINGS: MAMMOGRAPHY: Breast composition: The breasts are heterogeneously dense, which may obscure small masses. Mass: No suspicious masses. Architectural distortion: None. Calcifications: No suspicious calcifications. Asymmetric density: None. Skin thickening: None. Axillary adenopathy: None. IMPRESSION: No mammographic evidence of malignancy. Annual screening is recommended unless otherwise clinically indicated. ASSESSMENT: BI-RADS Category 1: Negative
[2024-03-30 16:49] LABS: Alanine Aminotransferase 33 U/L (12-78); Albumin/Globulin Ratio 1.3 (1.1-1.8); Alkaline Phosphatase 56 U/L (38-126); Anion Gap 9.5 mEq/L (5-15); Aspartate Amino Transferase 33 U/L (14-36); Bilirubin,Total 0.5 mg/dl (0.2-1.3); Blood Urea Nitrogen 16 mg/dl (7-17); Calcium 9.4 mg/dl (8.4-10.2); Carbon Dioxide 26 mmol/L (22.0-30.0); Chloride 107 mmol/L (98-107); Chol/HDL Ratio 2.7 (1-3.5); Cholesterol 168 mg/dl (140-200); Estimated Glomerular Filt Rate 99 ml/min (>60); GFR (African American) 120 ML/MIN (>60); Glucose 176 mg/dl (74-100); HDL Cholesterol 62 mg/dl (40-60); Potassium 4.5 mmoL/L (3.5-5.1); Sodium 138 mmol/L (136-145); Triglycerides 160 mg/dl (30-150); VLDL Cholesterol 32 mg/dL (0-40)
[2024-03-30 17:00] LABS: Direct LDL Cholesterol 77.81 mg/dL (100-129)
== END 2024-03-30 23:59 | disposition home or self-care (01) ==
LOC: RAD 15:26
PROVIDERS: PCP Internal Medicine Adolescent Medicine; Visit Provider Nurse Practitioner Obstetrics & Gynecology
DX: E11.69 Type 2 diabetes mellitus with other specified complication (principal); Z12.31 Encounter for screening mammogram for malignant neoplasm of breast; E78.5 Hyperlipidemia, unspecified
CPT/HCPCS: 36415; 77063; 77067; 80053; 80061; 83036

== ENCOUNTER 2025-05-13 15:53 | Outpatient (CLI) | payer MEDICARE, SELFPAY ==
--- NOTE | 2025-05-13 16:00 | MM_ITS ---
PROCEDURE INFORMATION: Exam: MG Bilateral Screening 3D Mammography Exam date and time: 05/13/2025 3:56 PM Age: 69 years old Clinical indication: Screening exam. TECHNIQUE: Imaging protocol: Bilateral Screening tomosynthesis and 2D mammography including computer-aided detection (CAD) when performed. COMPARISON: 1. MG MM DIG SCREENING MAMM BI W/CAD 03/30/2024 3:39 PM 2. MG MM DIG MAMM BI DX W/CAD 07/23/2022 2:36 PM FINDINGS: MAMMOGRAPHY: Breast composition: The breasts are heterogeneously dense, which may obscure small masses. Mass: No suspicious masses. Architectural distortion: None. Calcifications: No suspicious calcifications. Asymmetric density: None. Skin thickening: None. Axillary adenopathy: None. IMPRESSION: No mammographic evidence of malignancy. Annual screening is recommended unless otherwise clinically indicated. ASSESSMENT: BI-RADS Category 1: Negative.
== END 2025-05-13 23:59 | disposition home or self-care (01) ==
LOC: RAD 15:54
PROVIDERS: PCP Internal Medicine Adolescent Medicine; Visit Provider Nurse Practitioner Obstetrics & Gynecology
DX: Z12.31 Encounter for screening mammogram for malignant neoplasm of breast (principal); R92.333 Mammographic heterogeneous density, bilateral breasts
CPT/HCPCS: 77063; 77067